=== PATIENT | male | born 1965 | race Caucasian/White ===

== ENCOUNTER 2018-07-31 12:08 | Observation (INO) | payer OTHER ==
[2018-07-31] MEDS ORDERED: cefTRIAXone 1,000 MG in Lidocaine 1% 4 ML IM ONE (12:17)
[2018-07-31] MEDS ORDERED: Sodium Chloride 0.9% 1,000 ML IV ONE (12:17)
[2018-07-31] MEDS ORDERED: Diphtheria,Pertussis(Acell),Tetanus Vaccine 0.5 ML Syringe IM ONE (12:17)
--- NOTE | 2018-07-31 12:19 | EDM.PDOC ---
ED HPI GENERAL MEDICAL PROBLEM - General Chief Complaint: Trauma Stated Complaint: AMB Time Seen by Provider: 07/31/18 12:18 Source of Information: Reports: Patient - History of Present Illness INITIAL COMMENTS - FREE TEXT/NARRATIVE: HISTORY AND PHYSICAL: History of present illness: [Patient was working on an extension ladder slid down the house following a distance of 1550 landed in prone position distress taking the brunt of the foreskin does have a fight bite lesion in the chipped tooth otherwise arrives alert interactive rates pain 5 out of 10 nonradiating anterior chest Fever nausea vomiting chills sweats no shortness of breath or diaphoresis no headache dizziness palpitation no bowel or urine symptoms Secondary complaints of left ankle pain and right great toe pain ] Review of systems: As per history of present illness and below otherwise all systems reviewed and negative. Past medical history: As per history of present illness and as reviewed below otherwise noncontributory. Surgical history: As per history of present illness and as reviewed below otherwise noncontributory. Social history: No reported history of drug or alcohol abuse. Family history: As per history of present illness and as reviewed below otherwise noncontributory. Physical exam: HEENT: Atraumatic, normocephalic, pupils reactive, negative for conjunctival pallor or scleral icterus, mucous membranes moist, throat clear, neck supple, nontender, trachea midline. Lungs: Clear to auscultation, breath sounds equal bilaterally, chest tenderness across precordium Heart: S1S2, regular, negative for clicks, rubs, or JVD. Abdomen: Soft, nondistended, nontender. Negative for masses or hepatosplenomegaly. Negative for costovertebral tenderness. Pelvis: Stable nontender. Genitourinary: Deferred. Rectal: Deferred. Extremities: Atraumatic, negative for cords or calf pain. Neurovascular unremarkable. Neuro: Awake, alert, oriented. Cranial nerves II through XII unremarkable. Cerebellum unremarkable. Motor and sensory unremarkable throughout. Exam nonfocal. Skin multiple minor abrasions Diagnostics: [CBC CMP INR UA head and cervical spine no contrastCT] Chest abdomen pelvis with contrast EKG Left ankle Therapeutics: [ normal saline T dap Rocephin 1 g IV Morphine 2 mg IV admitted to Dr. Corona for observation Impression: Rib fracture 2 through 5 on the right 2 through 6 on the left [ fall from height Fight bite lesion lower lip/tooth chipped Left ankle pain] Right great toe pain Definitive disposition and diagnosis as appropriate pending reevaluation and review of above. - Related Data Allergies Allergy/AdvReac Type Severity Reaction Status Date / Time No Known Allergies Allergy Verified 07/31/18 12:57 Home Meds: Home Meds Aspirin [Adult Low Dose Aspirin EC] 1 tab PO DAILY 02/16/16 [History] Cetirizine HCl [Allergy Relief] 1 tab PO DAILY 02/16/16 [History] Hydrochlorothiazide 0.5 tab PO DAILY 02/16/16 [History] Meloxicam 1 tab PO ASDIRECTED 02/16/16 [History] Multivitamin [Multivitamins] 1 cap PO DAILY 02/16/16 [History] Omeprazole 1 cap PO DAILY 02/16/16 [History] atorvaSTATin Calcium [Atorvastatin Calcium] 0.5 tab PO DAILY 02/16/16 [History] Past Medical History HEENT History: Reports: Allergic Rhinitis Cardiovascular History: Reports: Hypertension Respiratory History: Reports: None Gastrointestinal History: Reports: GERD Genitourinary History: Reports: None Musculoskeletal History: Reports: Arthritis Other Musculoskeletal History: hands Neurological History: Reports: None Psychiatric History: Reports: None Endocrine/Metabolic History: Reports: Obesity/BMI 30+ Hematologic History: Reports: None Immunologic History: Reports: None Oncologic (Cancer) History: Reports: None Dermatologic History: Reports: None - Past Surgical History Musculoskeletal Surgical History: Reports: Arthroscopic Knee Review of Systems - Review of Systems Review Of Systems: See Below ED EXAM, GENERAL - Physical Exam Exam: See Below Course - Vital Signs Last Recorded V/S: Last Vital Signs Temp 97.5 F 07/31/18 12:12 Pulse 79 07/31/18 12:12 Resp 18 07/31/18 12:12 BP 130/85 07/31/18 12:12 Pulse Ox 98 07/31/18 12:12 - Orders/Labs/Meds Orders: Active Orders 24 hr Category Date Time Status Admission Status [Patient Status] [ADT] Stat ADT 07/31/18 12:30 Active EKG Documentation Completion [RC] STAT Care 07/31/18 12:17 Active Vaccines to be Administered [RC] PER UNIT ROUTINE Care 07/31/18 12:18 Active UA W/MICROSCOPIC [URIN] Stat Lab 07/31/18 12:17 Ordered Labs: Laboratory Tests 07/31/18 07/31/18 Range/Units 12:15 12:15 WBC 8.57 (4.0-11.0) K/uL RBC 4.93 (4.50-5.90) M/uL Hgb 15.5 (13.0-17.0) g/dL Hct 44.1 (38.0-50.0) % MCV 89.5 (80.0-98.0) fL MCH 31.4 (27.0-32.0) pg MCHC 35.1 (31.0-37.0) g/dL RDW Std Deviation 40.5 (28.0-62.0) fl RDW Coeff of Abdias 13 (11.0-15.0) % Plt Count 212 (150-400) K/uL MPV 11.40 (7.40-12.00) fL Neut % (Auto) 66.4 (48.0-80.0) % Lymph % (Auto) 21.8 (16.0-40.0) % Gage % (Auto) 7.8 (0.0-15.0) % Eos % (Auto) 3.4 (0.0-7.0) % Baso % (Auto) 0.6 (0.0-1.5) % Neut # (Auto) 5.7 (1.4-5.7) K/uL Lymph # (Auto) 1.9 (0.6-2.4) K/uL Gage # (Auto) 0.7 (0.0-0.8) K/uL Eos # (Auto) 0.3 (0.0-0.7) K/uL Baso # (Auto) 0.1 (0.0-0.1) K/uL Nucleated RBC % 0.0 /100WBC Nucleated RBCs # 0 K/uL Sodium 139 (136-148) mmol/L Potassium 4.1 (3.5-5.1) mmol/L Chloride 103 (98-107) mmol/L Carbon Dioxide 26.2 (21.0-32.0) mmol/L BUN 19 H (7.0-18.0) mg/dL Creatinine 0.9 (0.8-1.3) mg/dL Est Cr Clr Drug Dosing TNP Estimated GFR (MDRD) > 60.0 ml/min Glucose 115 H (74-106) mg/dL Calcium 9.2 (8.5-10.1) mg/dL Total Bilirubin 0.5 (0.2-1.0) mg/dL AST 28 (15-37) IU/L ALT 62 (14-63) IU/L Alkaline Phosphatase 58 (46-116) U/L Troponin I < 0.050 (0.000-0.056) ng/mL Total Protein 7.4 (6.4-8.2) g/dL Albumin 4.1 (3.4-5.0) g/dL Globulin 3.3 (2.0-3.5) g/dL Albumin/Globulin Ratio 1.2 L (1.3-2.8) Meds: Medications Discontinued Medications Generic Name Dose Route Start Last Admin Trade Name Freq PRN Reason Stop Dose Admin Diphtheria/Tetanus/Acell Pertussis 0.5 ml 07/31/18 12:17 07/31/18 13:42 Adacel IM 07/31/18 12:18 0.5 ml .ONCE ONE Administration Ceftriaxone Sodium 1,000 mg/ 4 mls @ 4 mls/sec 07/31/18 12:17 07/31/18 13:31 Lidocaine HCl IM 07/31/18 12:18 Not Given ONETIME ONE Sodium Chloride 1,000 mls @ 999 mls/hr 07/31/18 12:17 07/31/18 13:10 Normal Saline IV 07/31/18 13:17 999 mls/hr STAT ONE Administration Ceftriaxone Sodium/Dextrose 1 50 mls @ 100 mls/hr 07/31/18 12:20 07/31/18 13: 10 gm/ Premix IV 07/31/18 12:49 100 mls/hr ONETIME ONE Administration Iopamidol 100 ml 07/31/18 12:44 07/31/18 12:45 Isovue Multipack-370 (76%) IVPUSH 07/31/18 12:45 100 ml ONETIME STA Administration Morphine Sulfate 2 mg 07/31/18 13:21 07/31/18 13:47 Morphine IVPUSH 07/31/18 13:22 2 mg ONETIME ONE Administration Departure - Departure Time of Disposition: 14:30 Disposition: Home, Self-Care 01 Condition: Good Clinical Impression: Ribs, multiple fractures - Discharge Information Referrals: PCP,None [Primary Care Provider] - Forms: ED Department Discharge - My Orders Last 24 Hours: My Active Orders 07/31/18 12:17 EKG Documentation Completion [RC] STAT UA W/MICROSCOPIC [URIN] Stat 07/31/18 12:18 Vaccines to be Administered [RC] PER UNIT ROUTINE 07/31/18 12:30 Admission Status [Patient Status] [ADT] Stat - Assessment/Plan Last 24 Hours: My Active Orders 07/31/18 12:17 EKG Documentation Completion [RC] STAT UA W/MICROSCOPIC [URIN] Stat 07/31/18 12:18 Vaccines to be Administered [RC] PER UNIT ROUTINE 07/31/18 12:30 Admission Status [Patient Status] [ADT] Stat
[2018-07-31] MEDS ORDERED: cefTRIAXone 1 GM in Premix Bag 1 BAG IV ONE (12:20)
[2018-07-31] MEDS ORDERED: Iopamidol 755 MG/ML 500 ML Multipack Bottle IVPUSH STA (12:44)
[2018-07-31 12:51] LABS: CHLORIDE,CL 103 mmol/L (98-107); SODIUM,NA 139 mmol/L (136-148)
--- NOTE | 2018-07-31 12:56 | CT ---
EXAMINATION: Non contrast CT head. Coronal and sagittal reformats. HISTORY: Pain FINDINGS: No evidence of intra or extra axial hemorrhage, mass, midline shift, hydrocephalus or edema. No hypoattenuation changes in the major vascular territories to suggest acute infarct. No abnormal intracranial calcifications are detected. No evidence of substantial vascular calcificat ions. Tiny mucous retention cysts. Mastoid air cells and middle ears are clear. Orbits and globes are symm etric. Pituitary fossa appears unremarkable. Calvarium is intact. No evidence of skull fracture. IMPRESSION: No acute intracranial findings.
--- NOTE | 2018-07-31 12:57 | CR ---
EXAMINATION: Left ankle HISTORY: Pain COMPARISON: None TECHNIQUE: 3 views FINDINGS/IMPRESSION: There is no acute osseous abnormality, dislocation, or fracture. Bone mineraliza tion and joint spaces are preserved. Ankle mortise and talar dome are intact. No focal soft tissue sw elling.
--- NOTE | 2018-07-31 13:06 | CT ---
EXAMINATION: CT cervical spine HISTORY: Pain COMPARISON: None TECHNIQUE: Axial CT images obtained through the cervical spine without contrast. Coronal and sagittal reconstructions obtained. FINDINGS: The cervical spinal alignment is normal. The vertebral body heights and disc spaces appear well-maintained. Mild marginal osteophytes are noted. Small osteophyte disc complex noted at C5-C6 an d C6-C7 resulting in mild to moderate neural foraminal stenosis on the right at C5-C6. There is no fr acture or acute osseous abnormality noted. Lung apices are clear. IMPRESSION: 1. Mild degenerative changes without acute findings.
--- NOTE | 2018-07-31 13:13 | CT ---
CT of the chest, abdomen and pelvis with contrast. HISTORY: Shortness of breath TECHNIQUE: Axial CT images were obtained of the chest, abdomen and pelvis following administration of 100 mL of Isovue-370 in the left antecubital fossa without complication. Coronal and sagittal recons tructions obtained. FINDINGS: Chest: The lungs are clear without focal consolidation. No pleural effusion or pneumothorax. Tiny int rafissural lymph nodes noted along the right minor fissure. Heart is normal in size without a pericar dial effusion. Thoracic aorta is normal in caliber. The main and central pulmonary arteries are paten t. Central airways are clear. Abdomen: The liver, spleen, adrenal glands, and pancreas appear normal. The gallbladder is normal. Th ere is no bulky retroperitoneal lymphadenopathy or abdominal ascites. The kidneys enhance and function symmetrically without evidence of obstructive uropathy. Pelvis: The large and small bowel are normal in caliber without evidence of obstruction. No focal per icolonic inflammation or stranding. Appendix is normal. No bulky pelvic lymphadenopathy or free pelvi c fluid. The urinary bladder is normal. There are several nondisplaced anterior fractures bilaterally. These involve at least the second thro ugh fifth right ribs and second through sixth left ribs. Grade 1 anterolisthesis of L5 on S1 bilatera l spondylolysis. IMPRESSION: 1. Several nondisplaced anterior rib fractures noted bilaterally without an underlying pneumothorax. 2. No evidence of a solid organ injury. 3. Otherwise no acute findings noted within the chest, abdomen, or pelvis.
[2018-07-31] MEDS ORDERED: Morphine 2 MG/ML Syringe IVPUSH ONE (13:21)
--- NOTE | 2018-07-31 15:03 | CR ---
EXAMINATION: Right foot HISTORY: Pain COMPARISON: None TECHNIQUE: 2 views FINDINGS/IMPRESSION: There is a tiny chip fracture noted along the lateral and proximal aspect of the distal first phalanx with slight intra-articular extension. There is mild adjacent soft tissue swell ing. Remaining osseous structures and joint spaces appear preserved. Bone mineralization is otherwise normal.
[2018-07-31] MEDS ORDERED: Diazepam 2 MG Tab PO PRN (16:48)
[2018-07-31] MEDS: Lactated Ringers 1,000 ML IV SCH (17:22)
[2018-07-31] MEDS: HYDROmorphone 2 MG Tab PO PRN ×2 (17:33→22:41)
--- NOTE | 2018-08-01 00:21 | PCM.SN ---
- Free Text/Narrative Note: attempted to see pt, pt is soundly snoring, pain is in good control;
[2018-08-01] MEDS: Lactated Ringers 1,000 ML IV SCH (04:00)
[2018-08-01] MEDS: HYDROmorphone 2 MG Tab PO PRN (07:28)
[2018-08-01 07:33] VITALS: BP 132/79
[2018-08-01] MEDS ORDERED: Cetirizine 10 MG Tab PO SCH (09:00)
[2018-08-01] MEDS ORDERED: Meloxicam 7.5 MG Tab PO SCH (09:00)
[2018-08-01] MEDS ORDERED: Hydrochlorothiazide 12.5 MG Cap PO SCH (09:00)
[2018-08-01] MEDS ORDERED: Multivitamin Tab PO SCH (09:00)
[2018-08-01] MEDS ORDERED: atorvaSTATin 10 MG Tab PO SCH (09:00)
[2018-08-01] MEDS ORDERED: Aspirin 81 MG Tab.EC PO SCH (09:00)
[2018-08-01] MEDS ORDERED: Omeprazole 20 MG Cap.CR PO SCH (09:00)
--- NOTE | 2018-08-07 09:47 | PCM.SN ---
- Free Text/Narrative Note: pt seen, chart reviewed, admitted for trauma observation for B rib fx; [id number]
--- NOTE | 2018-08-07 09:51 | PCM.SN ---
- Free Text/Narrative Note: dc summary [id number]
--- NOTE | 2018-08-07 10:54 | DISCH ---
DATE OF DISCHARGE: 08/01/2018 PRIMARY CARE PHYSICIAN: Ekaterina PCP DIAGNOSIS: Trauma observation. Please refer to admitting history and physical for details. SUMMARY: The patient fell down from the ladder, has bilateral nondisplaced rib fractures, several of them, was admitted for observation as well as pain management. HOSPITAL COURSE: The patient was admitted to the floor, given pain control and given a regular diet and the next day, the patient continued to do well. Pain is well controlled. The patient tolerated a regular diet and able to ambulate by self and taking pain medication with good control. The patient was discharged. Upon discharge, the patient ambulated by self and tolerated a regular diet. The patient would get pain script and excuse from work and also follow up with primary care and follow up with myself 1 week from today. DYLAN MANCILLA /[id number]
--- NOTE | 2018-08-07 12:27 | HP ---
DATE OF : 1965 PRIMARY CARE PHYSICIAN: None PCP HISTORY OF PRESENT ILLNESS: The patient is a 52-year-old gentleman, and while working on extension ladder, slid down the house following a distance of about 15 feet. He landed in a prone position, with his face taking the blunt of the fall with scraped skin and a chipped tooth. The patient was alert and awake in the Emergency Room on trauma workup. The foot x-ray shows a tiny chip fracture along the lateral aspect of the distal first phalanx on the right foot. Chest CT shows several nondisplaced anterior rib fractures bilaterally without pneumothorax. No injury to chest, abdomen, or pelvis other than noted rib fracture. No solid organ injury. Head CT, no acute intracranial finding. Cervical C-spine, no acute finding. Left ankle, no fracture, dislocation, or acute finding. However, because of the pain and the bilateral rib fractures, Surgery was consulted for admit for observation. ALLERGIES: Please refer to nursing for details. MEDICATIONS: Please refer to nursing for details. PAST MEDICAL HISTORY: Significant for no [place], no CVA. PAST SURGICAL HISTORY: No abdominal surgery. FAMILY HISTORY: Noncontributory. SOCIAL HISTORY: Denied alcohol abuse. PHYSICAL EXAMINATION: GENERAL: A very pleasant gentleman, sitting in bedside, and in no acute distress. HEENT: Normocephalic and atraumatic. There is lower lip with superficial laceration, a little bit towards the left side, only on the lip. No sinus tenderness. Trachea is midline. No cutaneous crepitus. LUNGS: Bilateral breath sounds. ABDOMEN: Soft, and pelvis is stable. IMPRESSION AND PLAN: Trauma because of bilateral rib fracture and we will admit for pain management and we will put on a full liquid diet. DYLAN / LAURENT /[id number]
== END 2018-08-01 10:37 ==
LOC: MW.ED 12:08 → MW.MS 12:30
PROVIDERS: ADMIT Surgery; ATTEND Surgery
DX: S22.43XA Multiple fractures of ribs, bilateral, initial encounter for closed fracture (principal); S92.421A Displaced fracture of distal phalanx of right great toe, initial encounter for closed fracture; S92.411A Displaced fracture of proximal phalanx of right great toe, initial encounter for closed fracture; I10 Essential (primary) hypertension; E66.9 Obesity, unspecified; Z68.32 Body mass index [BMI] 32.0-32.9, adult; W11.XXXA Fall on and from ladder, initial encounter
CPT/HCPCS: 36415; 70450; 71260; 72125; 73610; 73620; 74177; 80053; 81001; 84484; 85025; 90715; 93005; 96361; 96365; 96375; 99285; A9270; G0378; J0696; J2270; J7040; J7120; Q9967; 99284

== ENCOUNTER 2019-12-04 08:30 | Day surgery (SDC) | payer OTHER ==
[~2019-12-04 08:30] MED LIST: Lactated Ringers 1,000 ML IV SCH
[2019-12-04] MEDS ORDERED: Propofol 200 MG/20 ML SDV ONE ×3 (09:12→10:26)
[2019-12-04] MEDS ORDERED: fentaNYL 100 MCG/2 ML SDV ONE (09:13)
[2019-12-04] MEDS ORDERED: Lidocaine 2% 5 ML SDV ONE ×2 (09:13→10:15)
[2019-12-04] MEDS ORDERED: Midazolam 1 MG/ML 2 ML SDV ONE ×2 (09:13→09:49)
--- NOTE | 2019-12-04 09:52 | PCM.PREANE ---
Preanesthetic Assessment - Anesthesia/Transfusion/Family Hx Anesthesia History: Prior Anesthesia Without Reaction Family History of Anesthesia Reaction: No Transfusion History: No Prior Transfusion(s) - Review of Systems General: No Symptoms Pulmonary: No Symptoms Cardiovascular: No Symptoms Neurological: No Symptoms Other: Reports: None - Physical Assessment NPO Status Date: 12/03/19 Vital Signs: Last Vital Signs Temp 97.7 F 12/04/19 09:49 Pulse 58 L 12/04/19 09:49 Resp 14 12/04/19 09:49 BP 131/91 H 12/04/19 09:49 Pulse Ox 98 12/04/19 09:49 Height: 5 ft 7 in Weight: 97.976 kg ASA Class: 2 Airway Class: Mallampati = 2 Dentition: Reports: Normal Dentition ROM/Head Extension: Full Lungs: Clear to Auscultation, Normal Respiratory Effort Cardiovascular: Regular Rate, Regular Rhythm - Allergies Allergies/Adverse Reactions: Allergies Allergy/AdvReac Type Severity Reaction Status Date / Time No Known Allergies Allergy Verified 11/30/19 10:35 - Blood Blood Available: No - Anesthesia Plan Pre-Op Medication Ordered: None - Acknowledgements Anesthesia Type Planned: General Anesthesia Pt an Appropriate Candidate for the Planned Anesthesia: Yes Alternatives and Risks of Anesthesia Discussed w Pt/Guardian: Yes Pt/Guardian Understands and Agrees with Anesthesia Plan: Yes Additional Comments: PMH: gerd, htn PLAN: tiva PreAnesthesia Questionnaire HEENT History: Reports: Allergic Rhinitis, Hard of Hearing, Other (See Below) Other HEENT History: terrie hearing aids Cardiovascular History: Reports: High Cholesterol, Hypertension Respiratory History: Reports: None Gastrointestinal History: Reports: GERD, Hiatal Hernia Genitourinary History: Reports: None Musculoskeletal History: Reports: Arthritis Neurological History: Reports: None Psychiatric History: Reports: None Endocrine/Metabolic History: Reports: Obesity/BMI 30+ Hematologic History: Reports: None Immunologic History: Reports: None Oncologic (Cancer) History: Reports: None Dermatologic History: Reports: None - Infectious Disease History Infectious Disease History: Reports: None - Past Surgical History Head Surgeries/Procedures: Reports: None HEENT Surgical History: Reports: Tonsillectomy Cardiovascular Surgical History: Reports: None Respiratory Surgical History: Reports: None GI Surgical History: Reports: Colonoscopy, EGD Male Surgical History: Reports: Vasectomy Endocrine Surgical History: Reports: None Neurological Surgical History: Reports: None Musculoskeletal Surgical History: Reports: Arthroscopic Knee, Other (See Below) Other Musculoskeletal Surgeries/Procedures:: ACL repair right knee in 2010. Left Achilles tendon repair 10/2018 Oncologic Surgical History: Reports: None - SUBSTANCE USE Smoking Status *Q: Never Smoker Recreational Drug Use History: No - HOME MEDS Home Medications: Home Meds Aspirin [Adult Low Dose Aspirin EC] 81 mg PO DAILY 02/16/16 [History] Cetirizine HCl [Allergy Relief] 10 mg PO DAILY PRN 02/16/16 [History] Hydrochlorothiazide 12.5 mg PO DAILY 02/16/16 [History] Meloxicam 15 mg PO DAILY PRN 02/16/16 [History] Multivitamin [Multivitamins] 1 cap PO DAILY 02/16/16 [History] Omeprazole 20 mg PO DAILY 02/16/16 [History] atorvaSTATin Calcium [Atorvastatin Calcium] 10 mg PO DAILY 02/16/16 [History] Fluticasone Propionate 2 spray NASBOTH DAILY PRN 11/30/19 [History] lisinopriL [Lisinopril] 40 mg PO BEDTIME 11/30/19 [History] - CURRENT (IN HOUSE) MEDS Current Meds: Current Medications Lactated Ringer's (Ringers, Lactated) 1,000 mls @ 125 mls/hr IV ASDIRECTED RANJITH Discontinued Medications Fentanyl (Sublimaze) Confirm Administered Dose 100 mcg .ROUTE .STK-MED ONE Stop: 12/04/19 09:14 Lidocaine (Xylocaine-Mpf 2%) Confirm Administered Dose 5 ml .ROUTE .STK-MED ONE Stop: 12/04/19 09:14 Midazolam HCl (Versed 1 Mg/Ml) Confirm Administered Dose 2 mg .ROUTE .STK-MED ONE Stop: 12/04/19 09:14 Propofol (Diprivan 20 Ml) Confirm Administered Dose 400 mg .ROUTE .STK-MED ONE Stop: 12/04/19 09:13
[2019-12-04] MEDS ORDERED: Glycopyrrolate 0.2 MG/ML SDV ONE (10:15)
--- NOTE | 2019-12-04 10:58 | PCM.OPNOTE ---
- General Post-Op/Procedure Note Date of Surgery/Procedure: 12/04/19 Operative Procedure(s): egd w bx. colonoscopy Findings: see [id number] Pre Op Diagnosis: BRBPR and gerd Post-Op Diagnosis: Same Anesthesia Technique: Moderate Sedation Primary Surgeon: Zenon Meyers Pathology: egd bx Condition: Good
[2019-12-04 11:35] VITALS: BP 124/86; PULSE 62
--- NOTE | 2019-12-04 11:58 | PCM.POSTAN ---
POST ANESTHESIA ASSESSMENT - MENTAL STATUS Mental Status: Alert, Oriented - VITAL SIGNS Vital Signs: Last Vital Signs Temp 97.7 F 12/04/19 09:49 Pulse 62 12/04/19 11:15 Resp 14 12/04/19 11:15 BP 124/86 12/04/19 11:15 Pulse Ox 97 12/04/19 11:15 - RESPIRATORY Respiratory Status: Respiratory Rate WNL, Airway Patent, O2 Saturation Stable - CARDIOVASCULAR CV Status: Pulse Rate WNL, Blood Pressure Stable - GASTROINTESTINAL GI Status: No Symptoms - POST OP HYDRATION Hydration Status: Adequate & Stable
--- NOTE | 2019-12-04 11:58 | PCM48HPAN ---
Post Anesthesia Note - EVALUATION WITHIN 48HRS OF ANESTHETIC Vital Signs in Normal Range: Yes Patient Participated in Evaluation: Yes Respiratory Function Stable: Yes Airway Patent: Yes Cardiovascular Function Stable: Yes Hydration Status Stable: Yes Pain Control Satisfactory: Yes Nausea and Vomiting Control Satisfactory: Yes Mental Status Recovered: Yes Vital Signs: Last Vital Signs Temp 97.7 F 12/04/19 09:49 Pulse 62 12/04/19 11:15 Resp 14 12/04/19 11:15 BP 124/86 12/04/19 11:15 Pulse Ox 97 12/04/19 11:15
--- NOTE | 2019-12-04 14:37 | OR ---
SURGEON: Zenon Meyers MD DATE OF PROCEDURE: 12/04/2019 PREOPERATIVE DIAGNOSES: Bright red blood per rectum and recurrent gastroesophageal reflux disease. POSTOPERATIVE DIAGNOSES: Bright red blood per rectum and recurrent gastroesophageal reflux disease. PROCEDURES PERFORMED: Esophagogastroduodenoscopy with biopsy and colonoscopy. DESCRIPTION OF PROCEDURE: EGD: The patient was taken to the endoscopy room, and with the RETAIL SOLAR ADVISOR, Diprivan was administered. A well-lubricated EGD scope was gently inserted through the oropharynx, down the esophagus, passing through the gastroesophageal junction, into the stomach. The mucosa was examined upon the passage. Any etiology will be noted. Once in the stomach, we continued to advance to the distal antrum, passed through the pylorus into the second portion of the duodenum. Again, the mucosa was examined for any abnormality and etiology. The scope was then retrieved back to the stomach and then retroflexed to look at the fundus of the stomach. If a biopsy was indicated, we will biopsy the antrum, body, and gastroesophageal junction. The air will be sucked out while the scope is retrieved to reduce the patient's discomfort. The patient tolerated the procedure well. There were no intraoperative complications. Dr. Meyers was present through the whole procedure. Prior to surgery, a time-out had been called, the patient identified, procedure identified and antibiotic administered. The patient was taken to the endoscopy room. A time out was called, patient identified, and procedure identified. Diprivan was then administrated. Patient went from awake to sleep, hearing doctor talking or door closing is normal. Perineum inspection and digital examination were then performed. A well- lubricated colonoscope was gently inserted through the rectum, advanced past the rectosigmoid junction, the descending colon, splenic flexure, transverse colon, hepatic flexure, ascending colon, arrived to the cecum. Cecum was identified as dictated in the finding. Then the scope was carefully withdrawn while attention was paid to the mucosal surface for any abnormality. Air will be sucked out during the scope withdrawal. At the rectum, retroflexed to examine any rectal diseases, fistula or hemorrhoids. Patient tolerated procedure well. There were no intraoperative complications, and Dr. Meyers was present throughout the whole procedure. FINDINGS: EGD findings: 1. The patient is easily sedated with RETAIL SOLAR ADVISOR and Diprivan, the patient is soundly snoring. 2. Oropharynx and proximal esophagus are free of disease. There is no stricture, inflammation, infection, or varicosity. Distal esophagus shows hiatal hernia and mild acid reflux. GE junction at 35. The stomach rugae are normal in appearance and antrum looks fine. Duodenum is grossly normal. Retrieved back to look at the fundus of the stomach, there is a hiatal hernia. Biopsy done at antrum, GE junction at 35, and body and sucked out the gas while scope coming out. During the whole study, there is no blood, ulcer, bile, or food particle observed. Colonoscopy findings: 1. The patient is easily sedated with RETAIL SOLAR ADVISOR and Diprivan, the patient is soundly snoring. 2. Colon is a little bit redundant at the sigmoid requiring maneuver in order to get to the cecum. Cecum indicated by ileocecal fold, one-to-one indentation, and appendiceal orifice. ScopeGuide is pointing south. Mucosa examined upon scope pulling out. The patient's bowel prep is average. There is moderate amount of liquid stool, no semi-formed stool. Easily irrigated and examined the mucosa. The patient has diverticulosis on the left and a couple of them on the right. No signs or symptoms of diverticulitis. No polyp, mass, growth, inflammation, stricture, AV malformation, bleeding, blood, none of those. The patient has mild external hemorrhoids, mild internal hemorrhoids. The patient would benefit from repeat colonoscopy in 10 years from today or if clinically indicated otherwise. DYLAN / LAURENT /[id number]
== END 2019-12-04 11:36 | disposition home or self-care (01) ==
LOC: MW.SDS 08:30
PROVIDERS: ATTEND Surgery
DX: K29.50 Unspecified chronic gastritis without bleeding (principal); K21.0 Gastro-esophageal reflux disease with esophagitis; K44.9 Diaphragmatic hernia without obstruction or gangrene; Q43.8 Other specified congenital malformations of intestine; K57.30 Diverticulosis of large intestine without perforation or abscess without bleeding; K64.8 Other hemorrhoids; K64.4 Residual hemorrhoidal skin tags; I10 Essential (primary) hypertension; E78.00 Pure hypercholesterolemia, unspecified; M19.90 Unspecified osteoarthritis, unspecified site; E66.9 Obesity, unspecified; Z68.33 Body mass index [BMI] 33.0-33.9, adult; Z79.82 Long term (current) use of aspirin; Z79.899 Other long term (current) drug therapy
CPT/HCPCS: 43239; 45378; J2001; J2250; J2704; J3490; J7120; J3010

== ENCOUNTER 2023-02-01 10:39 | Emergency (ER) | payer OTHER ==
[2023-02-01] MEDS ORDERED: Lactated Ringers 1,000 ML IV ONE ×2 (11:08→13:37)
[2023-02-01] MEDS ORDERED: Ondansetron 4 MG/2 ML SDV IVPUSH ONE ×2 (11:09→12:36)
[2023-02-01] MEDS ORDERED: Sodium Chloride 0.9% 10 ML Syringe FLUSH PRN (11:09)
[2023-02-01] MEDS ORDERED: Sodium Chloride 0.9% 2.5 ML Syringe FLUSH PRN (11:09)
[2023-02-01] MEDS ORDERED: HYDROmorphone 1 MG/ML Syringe IVPUSH ONE ×2 (11:27→12:36)
[2023-02-01 12:03] LABS: CARBON DIOXIDE,CO2 22.4 mmol/L (21.0-32.0); POTASSIUM,K 3.5 mmol/L (3.5-5.1)
[2023-02-01] MEDS ORDERED: Iopamidol 755 MG/ML 500 ML Multipack Bottle IVPUSH ONE (12:40)
[2023-02-01] MEDS ORDERED: Tamsulosin 0.4 MG Cap.ER PO ONE (13:37)
[2023-02-01] MEDS ORDERED: Ondansetron 4 MG Tab.DIS PO ONE (13:37)
[2023-02-01] MEDS ORDERED: oxyCODONE 5 MG Tab PO ONE (13:37)
[2023-02-01] MEDS ORDERED: Ketorolac 30 MG/ML SDV IVPUSH ONE (13:37)
[2023-02-01 15:55] VITALS: BP 133/83; PULSE 72
== END 2023-02-01 15:57 | disposition home or self-care (01) ==
LOC: MW.ED 10:39
DX: N13.2 Hydronephrosis with renal and ureteral calculous obstruction (principal); E78.00 Pure hypercholesterolemia, unspecified; I10 Essential (primary) hypertension; K21.9 Gastro-esophageal reflux disease without esophagitis; E66.9 Obesity, unspecified; Z68.34 Body mass index [BMI] 34.0-34.9, adult; Z79.82 Long term (current) use of aspirin; Z79.899 Other long term (current) drug therapy
CPT/HCPCS: 36415; 74177; 80053; 81003; 83690; 83735; 85025; 85610; 96361; 96374; 96375; 96376; 99284; A9270; J1170; J1885; J2405; J3490; J7120; Q9967